=== PATIENT | female | born 1950 | race Two or more races ===

== ENCOUNTER 2018-02-02 12:19 | Emergency (ER) | payer OTHER ==
[~2018-02-02] VITALS: Ht 160 cm; Wt 53.0 kg
[2018-02-02 12:24] VITALS: BP 147/87
[2018-02-02] MEDS ORDERED: ONDANSETRON ODT 4 MG PO ONE (13:00)
[2018-02-02] MEDS ORDERED: HYDROcodone/APAP 5/325 TABLET PO PRN (13:00)
== END 2018-02-02 13:32 | disposition home or self-care (01) ==
LOC: ED 13:25
DX: S90.111A Contusion of right great toe without damage to nail, initial encounter (principal); F17.200 Nicotine dependence, unspecified, uncomplicated; W04.XXXA Fall while being carried or supported by other persons, initial encounter; Y93.89 Activity, other specified; Y92.89 Other specified places as the place of occurrence of the external cause; Y99.8 Other external cause status
CPT/HCPCS: 99284